=== PATIENT | male | born 1995 | race Caucasian/White ===

== ENCOUNTER 2017-05-29 14:22 | Emergency (ER) | payer OTHER ==
[~2017-05-29] VITALS: Ht 177.8 cm; Wt 63.6 kg
[~2017-05-29 14:22] MED LIST: ASACOL PO; BACTRIM DS 8001 TAB PO; CEPHALEXIN500 M1 PO; NAPROSYN500 MG PO; NORCO 325 MG-51 TAB PO; PAMELOR 10MG10 MG PO; PROZAC 10MG10 MG PO; SINGULAIR 110 MG/TAB PO; ZANTAC 150MG T150 MG PO
[2017-05-29 14:23] VITALS: BP 141/81; TEMP 98.5
[2017-05-29] MEDS ORDERED: CEPHALEXIN500 M1 PO (15:01)
[2017-05-29] MEDS ORDERED: BACTRIM DS 8001 TAB PO (15:01)
[2017-05-29 15:12] VITALS: PULSE 79
== END 2017-05-29 15:15 | disposition home or self-care (01) ==
LOC: COL.ER 14:22
DX: L03.114 Cellulitis of left upper limb (principal); L02.414 Cutaneous abscess of left upper limb; F41.9 Anxiety disorder, unspecified; F90.9 Attention-deficit hyperactivity disorder, unspecified type

== ENCOUNTER 2019-06-04 03:57 | Emergency (ER) | payer OTHER ==
[~2019-06-04] VITALS: Ht 177.8 cm; Wt 63.6 kg
[2019-06-04 04:01] VITALS: TEMP 99.6
[2019-06-04] MEDS ORDERED: AMOXICILLIN/CLA1 TA1 (04:07)
[2019-06-04] MEDS ORDERED: IBU800 M1 PO (04:07)
[2019-06-04] MEDS ORDERED: MAGIC MOUTH PO (04:07)
[2019-06-04 04:34] LABS: HEMATOCRIT 42.9 % (42.0-52.0); HEMOGLOBIN 14.6 g/dl (13.5-18.0); MEAN CELL VOLUME 88 fl (80.0-100.0); MEAN CORPUSCULAR HEMOGLOBIN 30 pg (27.0-31.0); MEAN CORPUSCULAR HGB CONC 34 g/dl (33.0-37.0); MEAN PLATELET VOLUME 9.6 fl (7.4-10.4); PLATELET COUNT 134 K/mm3 (130-400); RED BLOOD COUNT 4.89 M/mm3 (4.20-5.60); REDCELL DISTRIBUTION WIDTH-CV 12.7 % (11.5-14.5)
[2019-06-04 04:43] LABS: ALBUMIN 3.9 gm/dL (3.5-5.0); BILIRUBIN,TOTAL 0.6 mg/dL (0.0-1.0); CALCIUM 9.4 mg/dL (8.4-10.2); CREATININE, serum 0.74 (0.66-1.25); POTASSIUM 4.3 mmol/L (3.4-5.0); TOTAL PROTEIN 7.2 gm/dL (6.4-8.2)
[2019-06-04 05:21] LABS: BAND 8 % (0-10); LYMPHOCYTE 71 % (20.0-51.0); NEUTROPHILS 15 % (42.0-75.2)
[2019-06-04 05:22] LABS: PLATELET ESTIMATE DECREASED (NORMAL)
[2019-06-04 05:25] LABS: TOXIC GRANULATION PRESENT
[2019-06-04] MEDS ORDERED: NORCO 325 MG-51 TAB PO (05:56)
[2019-06-04 06:00] VITALS: BP 126/73; PULSE 49
== END 2019-06-04 06:12 | disposition home or self-care (01) ==
LOC: COL.ER 03:57
PROVIDERS: Emergency Medicine
DX: J03.90 Acute tonsillitis, unspecified (principal); F90.9 Attention-deficit hyperactivity disorder, unspecified type; K58.9 Irritable bowel syndrome, unspecified
CPT/HCPCS: J0696; J1885; J2405; J3010; J7030; Q9967

== ENCOUNTER 2019-06-09 21:11 | Emergency (ER) | payer OTHER ==
[~2019-06-09] VITALS: Ht 177.8 cm; Wt 63.6 kg
[~2019-06-09 21:11] MED LIST changes: +AMOXICILLIN/CLA1 TA1; +IBU800 M1 PO; +MAGIC MOUTH PO
[2019-06-09 21:34] VITALS: TEMP 99.1
[2019-06-09 23:30] VITALS: BP 133/63; PULSE 59
== END 2019-06-09 23:30 | disposition home or self-care (01) ==
LOC: COL.ER 21:11
DX: B27.90 Infectious mononucleosis, unspecified without complication (principal)
CPT/HCPCS: J8540

== ENCOUNTER → 2020-09-03 | Outpatient (CLI) | payer OTHER | LOC: ZCOL.LAB 15:01 | DX: Z20.828 Contact with and (suspected) exposure to other viral communicable diseases (principal) ==

== ENCOUNTER 2022-06-08 22:38 | Emergency (ER) | payer OTHER ==
[~2022-06-08] VITALS: Ht 177.8 cm; Wt 61.4 kg
[2022-06-08 22:45] VITALS: BP 133/83
[2022-06-08 23:43] VITALS: PULSE 80; TEMP 98.2
== END 2022-06-08 23:43 | disposition home or self-care (01) ==
LOC: COL.ER 22:38
DX: H60.93 Unspecified otitis externa, bilateral (principal)

== ENCOUNTER 2022-08-06 11:38 | Emergency (ER) | payer OTHER ==
[~2022-08-06] VITALS: Ht 177.8 cm; Wt 63.6 kg
[2022-08-06 14:10] VITALS: TEMP 98.1
[2022-08-06 16:33] VITALS: BP 128/87; PULSE 73
== END 2022-08-06 16:36 | disposition home or self-care (01) ==
LOC: COL.ER 11:38
DX: S49.92XA Unspecified injury of left shoulder and upper arm, initial encounter (principal); V00.831A Fall from motorized mobility scooter, initial encounter